=== PATIENT | female | born 1965 | race Caucasian/White ===

== ENCOUNTER 2021-08-07 17:01 | Emergency (ER) | payer BC ==
[2021-08-07] MEDS ORDERED: Ketorolac 15 MG/ML SDV IM ONE (19:27)
== END 2021-08-07 20:50 | disposition home or self-care (01) ==
LOC: JD.ED 17:01
DX: S83.91XA Sprain of unspecified site of right knee, initial encounter (principal); E78.00 Pure hypercholesterolemia, unspecified; I10 Essential (primary) hypertension; Z86.16 Personal history of COVID-19; Z79.899 Other long term (current) drug therapy; X50.0XXA Overexertion from strenuous movement or load, initial encounter; Y93.67 Activity, basketball
CPT/HCPCS: 73562; 96372; 99283; J1885

== ENCOUNTER 2023-05-27 13:00 | Day surgery (SDC) | payer BC ==
[2023-05-27] MEDS: Polymyxin B/Trimethoprim 10 ML Bottle EYELF SCH ×3 (12:43→14:21)
[2023-05-27] MEDS: Brimonidine 0.2% Ophth Soln 5 ML Bottle EYELF SCH ×3 (12:48→14:21)
[2023-05-27] MEDS: Phenylephrine 2.5% Ophth Soln 2 ML Bot EYELF SCH ×5 (12:53→13:50)
[2023-05-27] MEDS: Tropicamide 1% Ophth Soln 3 ML Bottle EYELF SCH ×4 (12:55→13:19)
[~2023-05-27 13:00] MED LIST: Cefuroxime 10 MG/ML SYRINGE EYELF SCH; EPINEPHrine 1 MG/ML SDV ONE; Lidocaine 1% 10 ML MDV ONE; Lidocaine 1% PF 2 ML SDV INJECT SCH; Pilocarpine 4% Ophth Soln 15 ML Bot EYELF SCH
[2023-05-27] MEDS: Tetracaine HCl/PF 0.5% 4 ML Bottle EYEBOTH SCH ×4 (13:30→14:01)
[2023-05-27] MEDS ORDERED: Erythromycin Base 0.5% Ophth Oint 1 GM Tube ONE (14:21)
== END 2023-05-27 14:37 | disposition home or self-care (01) ==
LOC: JD.SDS 13:00
PROVIDERS: ATTEND Ophthalmology
DX: H25.812 Combined forms of age-related cataract, left eye (principal); H25.013 Cortical age-related cataract, bilateral; D23.122 Other benign neoplasm of skin of left lower eyelid, including canthus; D23.121 Other benign neoplasm of skin of left upper eyelid, including canthus; D23.112 Other benign neoplasm of skin of right lower eyelid, including canthus; D23.111 Other benign neoplasm of skin of right upper eyelid, including canthus; D48.5 Neoplasm of uncertain behavior of skin; H16.103 Unspecified superficial keratitis, bilateral; H16.223 Keratoconjunctivitis sicca, not specified as Sjogren's, bilateral; H02.831 Dermatochalasis of right upper eyelid; H02.834 Dermatochalasis of left upper eyelid; I10 Essential (primary) hypertension; E78.00 Pure hypercholesterolemia, unspecified; Z79.899 Other long term (current) drug therapy
CPT/HCPCS: 66984; A9270; J0171; 00142; J3490

== ENCOUNTER 2023-06-14 11:00 | Day surgery (SDC) | payer BC ==
[~2023-06-14 11:00] MED LIST changes: -Cefuroxime 10 MG/ML SYRINGE EYELF SCH; +Cefuroxime 10 MG/ML SYRINGE EYERT SCH; -EPINEPHrine 1 MG/ML SDV ONE; -Lidocaine 1% 10 ML MDV ONE; -Pilocarpine 4% Ophth Soln 15 ML Bot EYELF SCH; +Pilocarpine 4% Ophth Soln 15 ML Bot EYERT SCH
[2023-06-14] MEDS: Polymyxin B/Trimethoprim 10 ML Bottle EYERT SCH ×3 (12:08→14:20)
[2023-06-14] MEDS: Brimonidine 0.2% Ophth Soln 5 ML Bottle EYERT SCH ×3 (12:11→14:20)
[2023-06-14] MEDS: Phenylephrine 2.5% Ophth Soln 2 ML Bot EYERT SCH ×5 (12:17→13:58)
[2023-06-14] MEDS: Tropicamide 1% Ophth Soln 3 ML Bottle EYERT SCH ×4 (12:22→13:20)
[2023-06-14] MEDS: Proparacaine 0.5% Ophth Soln 15 ML Bottle EYEBOTH SCH ×4 (13:40→14:09)
== END 2023-06-14 14:27 | disposition home or self-care (01) ==
LOC: JD.SDS 11:00
PROVIDERS: ATTEND Ophthalmology
DX: H25.011 Cortical age-related cataract, right eye (principal); D23.111 Other benign neoplasm of skin of right upper eyelid, including canthus; D23.112 Other benign neoplasm of skin of right lower eyelid, including canthus; H16.103 Unspecified superficial keratitis, bilateral; H16.223 Keratoconjunctivitis sicca, not specified as Sjogren's, bilateral; H02.831 Dermatochalasis of right upper eyelid; H02.834 Dermatochalasis of left upper eyelid
CPT/HCPCS: A9270-GY; J0697; J3490